=== PATIENT | male | born 1985 | race Two or more races ===

== ENCOUNTER 2020-10-27 21:58 | Inpatient (IN) | payer MEDICARE, OTHER ==
[~2020-10-27] VITALS: Ht 157.5 cm; Wt 65.8 kg
[2020-10-27] MEDS ORDERED: ZOLPIDEM TARTRATE 5 MG TABLET PO PRN (23:00)
[2020-10-27] MEDS ORDERED: MAGNESIUM HYDROXIDE 30 ML UDC PO PRN (23:00)
[2020-10-27] MEDS ORDERED: ONDANSETRON HCL/PF 4 MG/2 ML VIAL IVP PRN (23:00)
[2020-10-27] MEDS ORDERED: HYDROCODONE/APAP 5/325MG TABLET PO PRN (23:00)
[2020-10-27] MEDS ORDERED: ACETAMINOPHEN 325 MG TABLET PO PRN (23:00)
[2020-10-27] MEDS ORDERED: MAG HYDROX/AL HYDROX/SIMETH 30 ML UDC PO PRN (23:00)
[2020-10-27] MEDS ORDERED: Z GUARD REMEDY 2 OZ OINT TP PRN (23:00)
[2020-10-27] MEDS ORDERED: MORPHINE SULFATE INJ 2 MG/ML DISP.SYRIN IV PRN (23:00)
[2020-10-28 00:06] VITALS: BP 111/75
--- NOTE | 2020-10-28 00:10 | NUR ---
DELINQUENCY PREVENTION OFFICER NOTES: 2039 PATIENT CAME TO ROOM FROM [facility], VIA [place], CC: ABDOMINAL PAIN WITH NAUSEA AND VOMITING, DX: SMALL BOWEL OBSTRUCTION, TAMAZIGHT SPEAKING BUT ABLE TO CONVERSE AND UNDERSTAND SAMI, A/OX4 ABLE TO MAKE NEEDS KNOWN, ON NPO WITH IV LINE #20 AT [facility], DR TAVERAS WAS MADE AWARE WITH PATIENT ARRIVAL, INVENTORY DONE AND SIGN, SKIN ASSESSMENT DONE NO SKIN ISSUES WAS OBSERVED, ORIENT TO ROOM AND PLACE IN LOW BED CALL LIGHTS WITHIN REACH, NO COMPLAIN OF PAIN AND DISCOMFORT AT THIS TIME,ALL NEEDS MET, KEPT WARM AND DRY, WILL CONTINUE TO MONITOR.
[2020-10-28] MEDS: IV D5/0.45 NACL 1,000 ML IV PRN ×2 (02:05→23:50)
--- NOTE | 2020-10-28 02:58 | NUR ---
MS SHAFFER NOTES: MRSA SPECIMEN TAKEN AT 0200AM ON LEFT NARES
[2020-10-28 06:00] LABS: BASOPHILS % (AUTO) 0.6 % (0.0-2.0); EOSINOPHILS % (AUTO) 0.5 % (0.0-6.0); HEMATOCRIT 39 % (39-51); HEMOGLOBIN 12.7 g/dL (13.5-17.5); LYMPHOCYTES # (AUTO) 0.7 K/uL (0.8-4.8); LYMPHOCYTES % (AUTO) 13.9 % (20.0-44.0); MEAN CORPUSCULAR HGB CONC 33 g/dl (31.0-36.0); MEAN CORPUSCULAR VOLUME 92 fL (80-96); MONOCYTES # (AUTO) 0.4 K/uL (0.1-1.30); MONOCYTES % (AUTO) 8.1 % (2.0-12.0); NEUTROPHILS # (AUTO) 3.8 K/uL (1.8-8.9); NEUTROPHILS % (AUTO) 76.9 % (43.0-81.0); PLATELET COUNT (AUTO) 270 K/uL (150-450); RED BLOOD CELL COUNT(AUTO) 4.22 MIL/uL (4.5-6.0)
[2020-10-28 06:30] LABS: CALCIUM, SERUM 7.7 mg/dL (8.5-10.1); MAGNESIUM 1.7 mg/dL (1.8-2.4); PHOSPHORUS 3.5 mg/dL (2.5-4.9); POTASSIUM 3.2 mmol/L (3.5-5.1)
[2020-10-28 06:56] LABS: THYROID STIMULATING HORMONE 0.379 uIU/mL (0.358-3.74)
--- NOTE | 2020-10-28 06:56 | NUR ---
MS RN CLOSING NOTE: PATIENT SLEEP IN BED COMFORTABLY, BED IN LOW POSITION, CALL LIGHTS WITHIN REACH, NO COMPLAIN OF PAIN AND DISCOMFORT AT THIS TIME, A/OX4, AABLE TO MAKE NEEDS KNOWN, PATIENT IS AMBULATORY, ON D5 1/2NSS@150ML/HR INFUSING WELL, PATIENT KEPT CLEAN AND DRY, ALL NEEDS MET, ENDORSE TO INCOMING SHIFT.
--- NOTE | 2020-10-28 07:30 | NUR ---
MS RN OPENING NOTES RECEIVED PATIENT IN BED AWAKE. ALERT AND ORIENTED X 4, GEORGIAN SPEAKING. ABLE TO MAKE NEEDS KNOWN. NO SIGNS AND SYMPTOMS OF DISTRESS NOTED. NO COMPLAINTS OF PAIN AT THIS TIME. BREATHING EVEN AND UNLABORED ON ROOM AIR, TOLERATING WELL. IV ACCESS RAC#20 PATENT AND INTACT WITH D5 1/2 NS 1000 MLS RUNNING @150MLS/HR. SAFETY MEASURES IN PLACE WITH BED LOCKED AT LOW POSITION, SIDE RAILS UP X2. CALL LIGHT AND BEDSIDE TABLE WITHIN REACH. WILL CONTINUE TO MONITOR THROUGHOUT SHIFT.
[2020-10-28] MEDS ORDERED: CHOL200010 PO (07:38)
[2020-10-28 08:00] VITALS: BP 109/67
[2020-10-28] MEDS ORDERED: DIATR MEGLU/DIATRIZOATE SODIUM 120 ML BOTTLE (GASTROGRAPHIN) ONE ×2 (08:37)
[2020-10-28] MEDS: PANTOPRAZOLE 40 MG VIAL IV SCH (09:07)
[2020-10-28] MEDS: POTASSIUM CL. PREMIX PERIPHER. 50 ML IV SCH ×4 (10:47→14:53)
[2020-10-28] MEDS: Magnesium 1GM/D5W 100ML PREMIX 100 ML IV SCH ×2 (12:45→13:10)
[2020-10-28] MEDS ORDERED: POTASSIUM CHLORIDE 20 MEQ TAB.PRT.SR PO ONE (15:30)
--- NOTE | 2020-10-28 15:34 | NUR ---
MS RN NOTES CALLED AND SPOKE WITH LOUIS FROM [employer]. MESSAGE SENT TO DR. SUSANNE CEDENO REGARDING XRAY OF ABD RESULTS.
[2020-10-28 16:00] VITALS: BP 121/66
--- NOTE | 2020-10-28 19:30 | NUR ---
MS RN OPENING NOTES RECEIVED PATIENT IN BED, AWAKE, ALERT AND ORIENTED X 4. ABLE TO MAKE NEEDS KNOWN. PATIENT IS A ROMANIAN SPEAKER. ON ROOM AIR TOLERATING WELL. NO S/SX OF SOB AND/OR ACUTE DISTRESS NOTED. NO COMPLAINTS OF PAIN AT THIS TIME, NO COMPLAINTS OF NAUSEA AT THIS TIME. WITH IVF OF D5 1/2 NS 1L X 150 CC/HR INFUSING WELL OVER PATIENT'S RAC, NO REDNESS, NO S/SX OF INFILTRATION NOTED. SAFETY PRECAUTIONS OBSERVED: BED ON LOWEST LOCKED POSITION, SIDE RAILS UP X 2. KEPT CALL LIGHT WITHIN EASY REACH. INSTRUCTED TO CALL FOR ASSISTANCE WHEN NEEDED. PATIENT VERBALIZED UNDERSTANDING. WILL CONTINUE TO MONITOR PATIENT'S CONDITION.
[2020-10-28 20:00] VITALS: BP 122/54
[2020-10-29] MEDS: IV D5/0.45 NACL 1,000 ML IV PRN (06:11)
--- NOTE | 2020-10-29 06:38 | NUR ---
MS RN CLOSING NOTES PATIENT IN BED, AWAKE, ALERT AND ORIENTED X 4. ON ROOM AIR TOLERATING WELL. NO S/SX OF SOB AND/OR ACUTE DISTRESS NOTED. NO COMPLAINTS OF PAIN AT THIS TIME, NO COMPLAINTS OF NAUSEA, NO EPSIODE OF VOMITING DURING THE SHIFT. IVF OF D5 1/2 NS 1L X 150 CC/HR INFUSING WELL OVER PATIENT'S RAC, NO REDNESS, NO S/SX OF INFILTRATION NOTED. SAFETY PRECAUTIONS OBSERVED AND MAINTAINED DURING THE SHIFT: BED ON LOWEST LOCKED POSITION, SIDE RAILS UP X 2. KEPT CALL LIGHT WITHIN EASY REACH. WILL ENDORSE TO MORNING SHIFT NURSE FOR LISA.
[2020-10-29 07:31] LABS: CALCIUM, SERUM 7.7 mg/dL (8.5-10.1); CREATININE 0.9 mg/dL (0.6-1.3); MAGNESIUM 2.3 mg/dL (1.8-2.4); POTASSIUM 3.3 mmol/L (3.5-5.1)
--- NOTE | 2020-10-29 07:35 | NUR ---
MS RN OPENING NOTE RECEIVED PATIENT IN BED. A/O X4. AMBULATORY. ON ROOM AIR, TOLERATING WELL. NO SOB NOTED. NO S/S OF RESPIRATORY DISTRESS. DENIES ANY PAIN OR DISCOMFORT AT THIS TIME. IV ACCESS ON R AC #20, D5 1/2 NS CURRENTLY RUNNING AT 150 ML/HR, INTACT AND PATENT. SAFETY MEASURES MAINTAINED. ASPIRATION PRECAUTION IMPLEMENTED. BED IN LOWEST POSITION, BRAKES LOCKED. SIDE RAILS UP X2. CALL LIGHT WITHIN REACH. WILL CONTINUE PLAN OF CARE.
[2020-10-29 08:00] VITALS: BP 104/60
[2020-10-29] MEDS: PANTOPRAZOLE 40 MG VIAL IV SCH (09:11)
--- NOTE | 2020-10-29 10:13 | NUR ---
WOUND CARE CONSULT: RECEIVED CONSULT IN ERROR. PT DENIES HAVING ANY WOUNDS OR SKIN ISSUES.
--- NOTE | 2020-10-29 10:27 | NUR ---
RN NOTE ADVANCED DIET TO REGULAR.
[2020-10-29] MEDS ORDERED: POTASSIUM CHLORIDE 20 MEQ TAB.PRT.SR PO SCH (10:30)
--- NOTE | 2020-10-29 13:30 | NUR ---
RN NOTE: DISCHARGE PATIENT DISCHARGED. A/O X4. ACCOMPANIED AND BROUGHT DOWNSTAIRS VIA WHEELCHAIR. HEALTH TEACHING AND DISCHARGE INSTRUCTIONS GIVEN. PT. VERBALIZED UNDERSTANDING. SKIN IS INTACT. ALL FORMS SIGNED. REMOVED IV ACCESS AND ID WRISTBAND. PT WAS PICKED UP BY HIS MOTHER VIA [employer]IVATE CAR.
== END 2020-10-29 13:30 | disposition home or self-care (01) | DRG 387 ==
LOC: MED 22:20
PROVIDERS: ADMIT Student in an Organized Health Care Education/Training Program
DX: K50.012 Crohn's disease of small intestine with intestinal obstruction (principal); E87.6 Hypokalemia; E83.42 Hypomagnesemia; M19.90 Unspecified osteoarthritis, unspecified site; M41.9 Scoliosis, unspecified
CPT/HCPCS: 36415; 74250-TC; 80048-TC; 80061-TC; 83735-TC; 84100-TC; 84443-TC; 85025-TC; 87081-TC; C9113; G0378; J2270; J3475; J3480; J3490; J7070; Q9963